=== PATIENT | female | born 1980 | race Caucasian/White ===

== ENCOUNTER 2018-07-07 16:58 | Inpatient (IN) | payer MEDICAID, SELFPAY ==
[2018-07-07 17:16] VITALS: BMI 33.3
--- NOTE | 2018-07-07 17:50 | PCM.HP.STD ---
Problem List (1) Acute opioid withdrawal Status: Acute (2) Drug abuse Status: Chronic History of Present Illness Date of Admission: 07/07/18 Chief Complaint: Acute opioid withdrawal The patient is a 38 year old F with past medical history as mentioned above presented to the [facility] office requesting admission for acute opioid withdrawal for medical stabilization. Patient has been using IV heroin daily over the last 4 weeks and her last use was this morning. She mentioned that she has been using around half grams every day. Before the last 4 weeks, she was clean for 9 months and she underwent detox program at [facility] 2 years ago. In total, she has been using IV heroin intermittently for the last 10 to 11 years. Her presenting symptoms are anxiety and restlessness, associated with cold sweats and without aggravating or relieving factors. She complained of abdominal pain described as abdominal cramps, mild, not radiating, associated with nausea without vomiting and without aggravating or relieving factors. She denied constipation or diarrhea. Her vital signs are stable. Past Medical History Past Medical History (Chronic Problems): Chronic Problems Drug abuse (Chronic) Allergies No Known Allergies Allergy (Verified 07/07/18 17:28) Surgical History: no surgical history Psychiatric History: No pertinent psych hx [address] [employer] History: No pertinent [address] [employer] history Lives: Spouse/ Significant Other Smoking Status: Current every day smoker Tobacco Use: Cigarettes Alcohol: None Drugs: Heroin - *Family History Maternal History Items: No pertinent history Paternal History Items: No pertinent history Review of Systems Constitutional: Denies: Anorexia, Chills, Fever, Weakness Eyes: Denies: Blurred vision, Double vision, Drainage, Redness HEENT: Denies: Difficulty Hearing, Ear Pain, Eye Pain, Nasal Congestion, Sore Throat Cardiovascular: Denies: Chest Pain, Chest Pressure, Heaviness, Light Headedness, Palpitations, Syncope Respiratory: Denies: Cough, Pleuritic Pain, Shortness of Breath, Sputum production, Wheezing Gastrointestinal: Reports: Nausea, - - Abdominal cramps.. Denies: Abdominal Pain, Constipation, Diarrhea, Vomiting Genitourinary: Denies: Dysuria, Frequency, Hematuria Musculoskeletal: Denies: Arm Pain, Back Pain, Foot Pain Skin: Denies: Dryness, Rash Neurological: Reports: Tremor. Denies: Balance problems, Double vision, Change in Speech, Slurred speech, Confusion Psychiatric: Reports: Anxiety. Denies: Depression Endocrine: Denies: Change in Body Habitus, Polydipsia VTE Information - Inpt Only VTE Present on Admission: No VTE Mechan Device Prophylaxis: None VTE Pharm Prophylaxis ordered?: No Patient Problems: Active and Suspected Problems Acute opioid withdrawal (Acute) - Physical Exam General: Alert, Oriented x3, Cooperative, No apparent distress HEENT: Atraumatic, PERRLA, EOMI, Normocephalic Oral: Moist Mucosa, No Gingival or Mucosal Lesions/ Ulcerations Neck: Supple, No JVD, Negative Carotid Bruits, Trachea Midline, Thyroid Normal Size and Texture Lungs: Clear to auscultation, Normal air movement, No rhonchi, No wheeze, No rales Cardiovascular: Regular rate, Regular Rhythm, Normal S1, Normal S2, No murmurs, PMI Normal Abdomen: Bowel Sounds Present, Soft, Non Tender, Non-Distended, No Hepato-splenomegaly, Obese Extremities: No clubbing, No cyanosis, No edema Skin: No rashes, No breakdown Lymphatic: No Cervical, Supraclavicular, or Inguinal Adenopathy Neurological: Cranial nerves II-XII grossly intact, Motor Exam 5/5 strength throughout Psych/Mental Status: Normal Affect, Appropriate, Alert and oriented to time, place, person, mood and affect Weight: 194 lb 4 oz Body Mass Index (BMI) 33.3 Assessment/Plan All Active Problems Acute opioid withdrawal (Acute) This is a 38 years old female patient presented to the [facility] office requesting admission for acute opioid withdrawal for medical stabilization. #1 acute opiate withdrawal: Patient has been using IV heroin daily for the last 4 weeks, was clean for 9 months but in total, she has been using IV heroin intermittently for the last 10 to 11 years. Last use was this morning. [facility], stat CBC and CMP, urine drug screen, blood alcohol level, serum test, initiate [facility] protocol with stable course of Subutex, PRN Catapres, Bentyl, Vistaril, Motrin, methocarbamol, Zofran and Mirapex, trazodone nightly. #2 history of drug abuse: She has been using IV heroin dramatically for the last 10 to 11 years, was continuous for the last 4 months. She went to the detox program 2 years ago at [facility] but she relapsed. Plan as above. #3 tobacco abuse: NicoDerm patch. #4 DVT prophylaxis: Low-risk patient, no prophylaxis indicated. This note was generated with [facility] software. It may contain incorrect words, spelling, and punctuation that were not noted in checking the note before signing. Code Visit Inpatient E&M: 38487 Init Hosp L2
--- NOTE | 2018-07-07 17:55 | HP.PCM_ITS ---
Problem List (1) Acute opioid withdrawal Status: Acute (2) Drug abuse Status: Chronic History of Present Illness Date of Admission: 07/07/18 Chief Complaint: Acute opioid withdrawal The patient is a 38 year old F with past medical history as mentioned above presented to the [facility] office requesting admission for acute opioid withdrawal for medical stabilization. Patient has been using IV heroin daily over the last 4 weeks and her last use was this morning. She mentioned that she has been using around half grams every day. Before the last 4 weeks, she was clean for 9 months and she underwent detox program at [facility] 2 years ago. In total, she has been using IV heroin intermittently for the last 10 to 11 years. Her presenting symptoms are anxiety and restlessness, associated with cold sweats and without aggravating or relieving factors. She complained of abdominal pain described as abdominal cramps, mild, not radiating, associated with nausea without vomiting and without aggravating or relieving factors. She denied constipation or diarrhea. Her vital signs are stable. Past Medical History Past Medical History (Chronic Problems): Chronic Problems Drug abuse (Chronic) Allergies No Known Allergies Allergy (Verified 07/07/18 17:28) Surgical History: no surgical history Psychiatric History: No pertinent psych hx RINK RAT History: No pertinent RINK RAT history Lives: Spouse/ Significant Other Smoking Status: Current every day smoker Tobacco Use: Cigarettes Alcohol: None Drugs: Heroin - *Family History Maternal History Items: No pertinent history Paternal History Items: No pertinent history Review of Systems Constitutional: Denies: Anorexia, Chills, Fever, Weakness Eyes: Denies: Blurred vision, Double vision, Drainage, Redness HEENT: Denies: Difficulty Hearing, Ear Pain, Eye Pain, Nasal Congestion, Sore Throat Cardiovascular: Denies: Chest Pain, Chest Pressure, Heaviness, Light Headedness, Palpitations, Syncope Respiratory: Denies: Cough, Pleuritic Pain, Shortness of Breath, Sputum production, Wheezing Gastrointestinal: Reports: Nausea, - - Abdominal cramps.. Denies: Abdominal Pain, Constipation, Diarrhea, Vomiting Genitourinary: Denies: Dysuria, Frequency, Hematuria Musculoskeletal: Denies: Arm Pain, Back Pain, Foot Pain Skin: Denies: Dryness, Rash Neurological: Reports: Tremor. Denies: Balance problems, Double vision, Change in Speech, Slurred speech, Confusion Psychiatric: Reports: Anxiety. Denies: Depression Endocrine: Denies: Change in Body Habitus, Polydipsia VTE Information - Inpt Only VTE Present on Admission: No VTE Mechan Device Prophylaxis: None VTE Pharm Prophylaxis ordered?: No Patient Problems: Active and Suspected Problems Acute opioid withdrawal (Acute) - Physical Exam General: Alert, Oriented x3, Cooperative, No apparent distress HEENT: Atraumatic, PERRLA, EOMI, Normocephalic Oral: Moist Mucosa, No Gingival or Mucosal Lesions/ Ulcerations Neck: Supple, No JVD, Negative Carotid Bruits, Trachea Midline, Thyroid Normal Size and Texture Lungs: Clear to auscultation, Normal air movement, No rhonchi, No wheeze, No rales Cardiovascular: Regular rate, Regular Rhythm, Normal S1, Normal S2, No murmurs, PMI Normal Abdomen: Bowel Sounds Present, Soft, Non Tender, Non-Distended, No Hepato- splenomegaly, Obese Extremities: No clubbing, No cyanosis, No edema Skin: No rashes, No breakdown Lymphatic: No Cervical, Supraclavicular, or Inguinal Adenopathy Neurological: Cranial nerves II-XII grossly intact, Motor Exam 5/5 strength throughout Psych/Mental Status: Normal Affect, Appropriate, Alert and oriented to time, place, person, mood and affect Weight: 194 lb 4 oz Body Mass Index (BMI) 33.3 Assessment/Plan All Active Problems Acute opioid withdrawal (Acute) This is a 38 years old female patient presented to the [facility] office requesting admission for acute opioid withdrawal for medical stabilization. #1 acute opiate withdrawal: Patient has been using IV heroin daily for the last 4 weeks, was clean for 9 months but in total, she has been using IV heroin intermittently for the last 10 to 11 years. Last use was this morning. [facility], stat CBC and CMP, urine drug screen, blood alcohol level, serum test, initiate [facility] protocol with stable course of Subutex, PRN Catapres, Bentyl, Vistaril, Motrin, methocarbamol, Zofran and Mirapex, trazodone nightly. #2 history of drug abuse: She has been using IV heroin dramatically for the last 10 to 11 years, was continuous for the last 4 months. She went to the detox program [address] [facility] but she relapsed. Plan as above. #3 tobacco abuse: NicoDerm patch. #4 DVT prophylaxis: Low-risk patient, no prophylaxis indicated. This note was generated with [employer] software. It may contain incorrect words, spelling, and punctuation that were not noted in checking the note before signing. Code Visit Inpatient E&M: 47913 Init Hosp L2
[2018-07-07 18:00] VITALS: BP 116/79; PULSE 81; RESP 12; TEMP 36.8
[2018-07-07] MEDS: Buprenorphine HCl 2 MG TAB.SUBL SL (18:16)
[2018-07-07] MEDS: Methocarbamol 750 MG Tablet PO (18:16)
[2018-07-07] MEDS: cloNIDine HCl 0.1 MG Tablet PO (18:16)
[2018-07-07] MEDS: Pramipexole Di-HCl 0.25 MG Tablet PO (18:16)
[2018-07-07 18:33] LABS: Absolute Lymphocyte Count 1.93 X10^3/ul (0.83-4.51); Absolute Neutrophil Count 4.5 X10^3/uL (2.0-7.7); Basophil# 0.04 X10^3/uL; Basophil% 0.5 % (0-1); Eosinophils% 2.7 % (0-5); Hematocrit 38.9 % (37-47); Hemoglobin 12.3 g/dl (12.0-15.0); Lymphocyte # 1.93 X10^3/ul (4.0); Lymphocyte % 26.5 % (19-41); Mean Corp Hgb Conc 31.6 g/gl (32-36); Mean Corpuscular Hgb 26.7 pg (27.0-32.0); Mean Corpuscular Volume 84.4 fL (81-99); Mean Platelet Vol. 10.6 fl (6.2-12.0); Monocyte# 0.58 X10^3/uL; Neutrophil # 4.52 X10^3/uL (2.7-7.7); Platelet Count 357 K/mm3 (150-450); RBC Distribution Width CV 13.6 % (11.6-14.6); RBC Distribution Width SD 41.2 fl (35.1-43.9); Red Blood Count 4.61 M/mm3 (4.2-5.4); White Blood Count 7.3 K/mm3 (4.4-11.0)
[2018-07-07 18:35] LABS: POSITIVE COUNT NO; POSITIVE DIFFERENTIAL NO; POSITIVE MORPHOLOGY NO
[2018-07-07 18:42] LABS: ALB/GLOB Ratio 0.9 RATIO (0.9-2.4); AST(SGOT) 21 U/L (15-37); Alanine Aminotransfer ALT/SGPT 23 U/L (13-56); Albumin, Serum 3.1 g/dL (3.2-5.0); Alkaline Phosphatase 64 U/L (45-117); Anion Gap 4 (5-15); BUN 12 mg/dL (7-18); BUN/Creat Ratio 21.7 RATIO (10-20); Calcium,Total 8.5 mg/dL (8.5-10.1); Chloride 107 mmol/L (98-107); Creatinine, Serum 0.55 mg/dL (0.55-1.02); EST Glomerular Filtration Rate 132 mL/min (>60); Est Glom Filt Rate - Afr Amer 159 mL/min (>60); Estimated Creatinine Clearance 122.11 ml/min; Globulin 3.6 g/dL (2.2-4.2); Glucose 104 mg/dL (74-106); Potassium 3.7 mmol/L (3.5-5.1); Protein, Total 6.7 g/dL (6.4-8.2); Sodium Level 137 mmol/L (136-145)
[2018-07-07 19:31] LABS: Internal QC Validated? YES +Cl - CLEAR BKGD; Pregnancy, Serum, hCG Quali. NEGATIVE Negative
[2018-07-07 20:08] VITALS: BP 109/70; PULSE 74; RESP 17; TEMP 36.9
[2018-07-07 20:09] VITALS: BP 109/70; PULSE 74; RESP 17; TEMP 36.9; O2SAT 95
[2018-07-07 20:31] LABS: Amphetamine Urine VISTA NEGATIVE (<1000 ng/mL); Barbiturate Urine VISTA NEGATIVE (< 200 ng/mL); Benzodiazepine Urine VISTA POSITIVE (< 200 ng/mL); Cocaine Urine VISTA POSITIVE (< 300 ng/mL); Ecstacy Urine VISTA NEGATIVE (< 500 ng/mL); Methadone Urine VISTA NEGATIVE (< 300 ng/mL); PCP Urine VISTA NEGATIVE (< 25 ng/mL); THC Urine VISTA POSITIVE (< 50 ng/mL); Vista UDS pH Range 6
[2018-07-07] MEDS: traZODone 50 MG Tablet PO (21:13)
[2018-07-07 23:31] VITALS: BP 113/76; PULSE 72; RESP 17; TEMP 36.7; O2SAT 95
[2018-07-08] MEDS: Buprenorphine HCl 2 MG TAB.SUBL SL ×3 (01:52→17:50)
[2018-07-08] MEDS: cloNIDine HCl 0.1 MG Tablet PO ×2 (01:53→05:47)
[2018-07-08 02:07] VITALS: BP 116/71; PULSE 71; RESP 17; TEMP 36.7; O2SAT 96
[2018-07-08] MEDS: hydrOXYzine PAM 25 MG Capsule 50 MG PO ×2 (05:47→22:28)
[2018-07-08 05:50] VITALS: BP 112/72; PULSE 70; RESP 18; TEMP 37.1
--- NOTE | 2018-07-08 08:40 | PCM.PN.HOSP ---
Patient Problems: Active and Suspected Problems Acute opioid withdrawal (Acute) Subjective: Patient is drowsy but wakes up during conversation. Feels anxious and restlessness but denies abdominal cramps or pain or diarrhea. Has tremors. Vitals/I&O's: Vital Signs Temp Pulse Resp BP Pulse Ox 98.7 F 70 18 112/72 96 07/08/18 05:50 07/08/18 05:50 07/08/18 05:50 07/08/18 05:50 07/08/18 02:07 Oxygen Delivery Method Room Air Weight: 194 lb 4 oz Body Mass Index (BMI) 33.3 Intake and Output for Last 24 Hours 07/06/18 07/07/18 07/08/18 23:59 23:59 23:59 Intake Total 440 / 440 340 / 340 Balance 440 / 440 340 / 340 General: Alert, Oriented x3, Cooperative HEENT: Atraumatic, PERRLA, EOMI, Normocephalic Neck: Supple, No JVD, Negative Carotid Bruits Lungs: Clear to auscultation, Normal air movement, No rhonchi, No wheeze, No rales Cardiovascular: Regular rate, Regular Rhythm, Normal S1, Normal S2, No murmurs Abdomen: Bowel Sounds Present, Soft, Non Tender, Non-Distended Extremities: No edema, Capillary Refill Less than 3 Seconds Skin: No rashes, No breakdown Musculoskeletal: No Tenderness to Palpation of Joints or Extremities Neurological: Cranial nerves II-XII grossly intact Psych/Mental Status: Normal Affect, Appropriate Laboratory Results 07/07/18 18:15: WBC 7.3, RBC 4.61, Hgb 12.3, Hct 38.9, MCV 84.4, MCH 26.7 L, MCHC 31.6 L, RDW 13.6, RDW Differential 41.2, Plt Count 357, MPV 10.6, Immature Gran % (Auto) 0.300, Neut % (Auto) 62.0, Lymph % (Auto) 26.5, [place] % (Auto) 8.0, Eos % (Auto) 2.7, Baso % (Auto) 0.5, Absolute Neuts (auto) 4.5, Absolute Lymphs (auto) 1.93, Total Counted Not Reportable 07/07/18 18:15: Sodium 137, Potassium 3.7, Chloride 107, Carbon Dioxide 26.0, Anion Gap 4 L, BUN 12, Creatinine 0.55, Estim Creat Clear Calc 122.11, Est GFR (MDRD) Af Amer 159, Est GFR (MDRD) Non-Af 132, BUN/Creatinine Ratio 21.7 H, Glucose 104, Calcium 8.5, Total Bilirubin 0.20, AST 21, ALT 23, Alkaline Phosphatase 64, Total Protein 6.7, Albumin 3.1 L, Globulin 3.6, Albumin/Globulin Ratio 0.9 07/07/18 18:15: Ethyl Alcohol 7.0 07/07/18 18:15: Serum , Qual NEGATIVE 07/07/18 19:43: Urine Opiates Screen POSITIVE H, Urine Methadone Screen NEGATIVE, Ur Barbiturates Screen NEGATIVE, Ur Phencyclidine Scrn NEGATIVE, Ur Amphetamines Screen NEGATIVE, U Methamphetamin-MDMA NEGATIVE, U Benzodiazepines Scrn POSITIVE H, Urine Cocaine Screen POSITIVE H, U Cannabinoids Screen POSITIVE H, Ur Drug Screen Comment Current Medications Acetaminophen (Tylenol) 500 mg PO Q4H PRN PRN PRN Reason: Temp > 100.4 F Buprenorphine HCl (Buprenorphine Hcl) 4 mg SL Q8H DAQUAN; Taper Stop: 07/10/18 21:44 Last Admin: 07/08/18 01:52 Dose: 4 mg Clonidine (Catapres) 0.1 mg PO Q2H PRN PRN PRN Reason: Hot/Cold Sweats or Anxiety Last Admin: 07/08/18 05:47 Dose: 0.1 mg Dicyclomine HCl (Bentyl) 20 mg PO Q6H PRN PRN PRN Reason: Abdomnial Discomfort Hydroxyzine Pamoate (Vistaril Pamoate Capsule) 50 mg PO Q6H PRN PRN PRN Reason: Mild Anxiety Last Admin: 07/08/18 05:47 Dose: 50 mg Ibuprofen (Motrin) 600 mg PO Q8H PRN PRN PRN Reason: Mild-Moderate Pain (1-5/10) Methocarbamol (Methocarbamol) 750 mg PO Q6H PRN PRN PRN Reason: Muscle Aches Last Admin: 07/07/18 18:16 Dose: 750 mg Nicotine (Nicoderm Cq (Pbkc)) 14 mg TRANSDERM. DAILY DAQUAN Last Admin: 07/07/18 19:48 Dose: 14 mg Nutritional Formula (Lactose Free) (Ensure Enlive) 120 ml PO 4X/DAY [facility] Last Admin: 07/07/18 21:14 Dose: Not Given Ondansetron HCl (Zofran Odt) 4 mg PO Q6H PRN PRN PRN Reason: NAUSEA Pramipexole Dihydrochloride (Mirapex) 0.25 mg PO Q12H PRN PRN PRN Reason: Restless Legs Last Admin: 07/07/18 18:16 Dose: 0.25 mg Trazodone HCl (Desyrel) 50 mg PO QHS [facility] Last Admin: 07/07/18 21:13 Dose: 50 mg Medical Necessity - Tobacco Use Smoking Status: Current every day smoker Tobacco Use: Cigarettes Assessment/Plan All Active Problems Acute opioid withdrawal (Acute) This is a 38 years old female patient with history of chronic opioid use for 11 years, IV heroin daily for last 4 weeks, last use on day of admission was admitted to [facility] program for medical stabilization of acute opioid withdrawal. She uses heroin half grams daily. History of relapse, was sober for 9 months after she underwent detox program in [facility] 2 years ago. She started using for last 1 month. #1 acute opiate withdrawal: Patient is admitted on MedSurg floor. Vital signs are stable, heart rate in 70s, no tachypnea or hypoxia. Labs reviewed. Alcohol level 7.0. Denies alcohol intake. U tox is positive of opioids, benzodiazepine, cocaine and cannabinoids. Serum test negative. [facility] protocol with stable course of Subutex, PRN Catapres, Bentyl, Vistaril, Motrin, methocarbamol, Zofran and Mirapex, trazodone nightly. #2 history of substance use including benzodiazepine, cocaine, and cannabinoids including IV heroin: She has been using IV heroin dramatically for the last 10 to 11 years, was continuous for the last 4 months. She went to the detox program 2 years ago at [facility] but she relapsed. Plan as above. #3 tobacco abuse: NicoDerm patch. #4 DVT prophylaxis: Low-risk patient, no prophylaxis indicated. Laboratory Results 07/07/18 18:15: WBC 7.3, RBC 4.61, Hgb 12.3, Hct 38.9, MCV 84.4, MCH 26.7 L, MCHC 31.6 L, RDW 13.6, RDW Differential 41.2, Plt Count 357, MPV 10.6, Immature Gran % (Auto) 0.300, Neut % (Auto) 62.0, Lymph % (Auto) 26.5, [place] % (Auto) 8.0, Eos % (Auto) 2.7, Baso % (Auto) 0.5, Absolute Neuts (auto) 4.5, Absolute Lymphs (auto) 1.93, Total Counted Not Reportable 07/07/18 18:15: Sodium 137, Potassium 3.7, Chloride 107, Carbon Dioxide 26.0, Anion Gap 4 L, BUN 12, Creatinine 0.55, Estim Creat Clear Calc 122.11, Est GFR (MDRD) Af Amer 159, Est GFR (MDRD) Non-Af 132, BUN/Creatinine Ratio 21.7 H, Glucose 104, Calcium 8.5, Total Bilirubin 0.20, AST 21, ALT 23, Alkaline Phosphatase 64, Total Protein 6.7, Albumin 3.1 L, Globulin 3.6, Albumin/Globulin Ratio 0.9 07/07/18 18:15: Ethyl Alcohol 7.0 07/07/18 18:15: Serum , Qual NEGATIVE 07/07/18 19:43: Urine Opiates Screen POSITIVE H, Urine Methadone Screen NEGATIVE, Ur Barbiturates Screen NEGATIVE, Ur Phencyclidine Scrn NEGATIVE, Ur Amphetamines Screen NEGATIVE, U Methamphetamin-MDMA NEGATIVE, U Benzodiazepines Scrn POSITIVE H, Urine Cocaine Screen POSITIVE H, U Cannabinoids Screen POSITIVE H, Ur Drug Screen Comment Code Visit Inpatient E&M: 64642 Subs Hosp L2
[2018-07-08 09:51] VITALS: BP 117/77; PULSE 68; RESP 18; TEMP 36.9; O2SAT 95
[2018-07-08 14:00] VITALS: BP 121/81; PULSE 69; RESP 16; TEMP 36.7
[2018-07-08] MEDS: Methocarbamol 750 MG Tablet PO (17:53)
[2018-07-08] MEDS: Dicyclomine 10 MG Capsule 20 MG PO (17:53)
[2018-07-08 17:56] VITALS: BP 119/80; PULSE 72; RESP 16; TEMP 36.7
[2018-07-08 22:20] VITALS: BP 117/68; PULSE 71; RESP 18; TEMP 36.8
[2018-07-08] MEDS: traZODone 50 MG Tablet PO (22:29)
[2018-07-08] MEDS: Pramipexole Di-HCl 0.25 MG Tablet PO (22:40)
[2018-07-09 01:55] VITALS: BP 111/78; PULSE 62; RESP 14; TEMP 36.6
[2018-07-09] MEDS: Buprenorphine HCl 2 MG TAB.SUBL SL ×3 (01:55→23:07)
[2018-07-09 10:30] VITALS: BP 108/73; PULSE 79; RESP 18; TEMP 36.8
[2018-07-09] MEDS: cloNIDine HCl 0.1 MG Tablet PO (10:36)
[2018-07-09] MEDS: Dicyclomine 10 MG Capsule 20 MG PO (10:36)
[2018-07-09] MEDS: hydrOXYzine PAM 25 MG Capsule 50 MG PO (10:37)
--- NOTE | 2018-07-09 11:00 | PN_ITS ---
Patient Problems: Active and Suspected Problems Acute opioid withdrawal (Acute) Subjective: Patient feels better than yesterday. Denies nausea vomiting, abdominal cramps. Still has mild tremors. Vitals/I&O's: Vital Signs Temp Pulse Resp BP Pulse Ox 98.3 F 79 18 108/73 95 07/09/18 10:30 07/09/18 10:30 07/09/18 10:30 07/09/18 10:30 07/08/18 09:51 Oxygen Delivery Method Room Air Weight: 194 lb 3.989 oz Body Mass Index (BMI) 33.3 Intake and Output for Last 24 Hours 07/07/18 07/08/18 07/09/18 23:59 23:59 23:59 Intake Total 440 / 440 340 / 340 Balance 440 / 440 340 / 340 General: Alert, Oriented x3, Cooperative HEENT: Atraumatic, PERRLA, EOMI, Normocephalic Neck: Supple, No JVD, Negative Carotid Bruits Lungs: Clear to auscultation, Normal air movement, No rhonchi, No wheeze, No rales Cardiovascular: Regular rate, Regular Rhythm, Normal S1, Normal S2, No murmurs Abdomen: Bowel Sounds Present, Soft, Non Tender, Non-Distended Extremities: No edema, Capillary Refill Less than 3 Seconds Skin: No rashes, No breakdown Musculoskeletal: No Tenderness to Palpation of Joints or Extremities, Arthritic Changes Neurological: Cranial nerves II-XII grossly intact Psych/Mental Status: Normal Affect, Appropriate Current Medications Acetaminophen (Tylenol) 500 mg PO Q4H PRN PRN PRN Reason: Temp > 100.4 F Buprenorphine HCl (Buprenorphine Hcl) 2 mg SL Q12H DAQUAN; Taper Stop: 07/10/18 21:44 Last Admin: 07/09/18 10:37 Dose: 2 mg Clonidine (Catapres) 0.1 mg PO Q2H PRN PRN PRN Reason: Hot/Cold Sweats or Anxiety Last Admin: 07/09/18 10:36 Dose: 0.1 mg Dicyclomine HCl (Bentyl) 20 mg PO Q6H PRN PRN PRN Reason: Abdomnial Discomfort Last Admin: 07/09/18 10:36 Dose: 20 mg Hydroxyzine Pamoate (Vistaril Pamoate Capsule) 50 mg PO Q6H PRN PRN PRN Reason: Mild Anxiety Last Admin: 07/09/18 10:37 Dose: 50 mg Ibuprofen (Motrin) 600 mg PO Q8H PRN PRN PRN Reason: Mild-Moderate Pain (1-5/10) Methocarbamol (Methocarbamol) 750 mg PO Q6H PRN PRN PRN Reason: Muscle Aches Last Admin: 07/08/18 17:53 Dose: 750 mg Nicotine (Nicoderm Cq (Pbkc)) 14 mg TRANSDERM. DAILY ON LICENSE OF [facility] Last Admin: 07/09/18 10:33 Dose: Not Given Ondansetron HCl (Zofran Odt) 4 mg PO Q6H PRN PRN PRN Reason: NAUSEA Pramipexole Dihydrochloride (Mirapex) 0.25 mg PO Q12H PRN PRN PRN Reason: Restless Legs Last Admin: 07/08/18 22:40 Dose: 0.25 mg Trazodone HCl (Desyrel) 50 mg PO QHS ON LICENSE OF [facility] Last Admin: 07/08/18 22:29 Dose: 50 mg Medical Necessity - Tobacco Use Smoking Status: Current every day smoker Tobacco Use: Cigarettes Assessment/Plan All Active Problems Acute opioid withdrawal (Acute) This is a 38 years old female patient with history of chronic opioid use for 11 years, IV heroin daily for last 4 weeks, last use on day of admission was admitted to [facility] program for medical stabilization of acute opioid withdrawal. She uses heroin half grams daily. History of relapse, was sober for 9 months after she underwent detox program in [facility] 2 years ago. She started using for last 1 month. #1 acute opiate withdrawal: Patient is admitted on MedSurg floor. Vital signs are stable, heart rate in 70s, no tachypnea or hypoxia. Labs reviewed. Alcohol level 7.0. Denies alcohol intake. U tox is positive of opioids, benzodiazepine, cocaine and cannabinoids. Serum test negative. MAGDIEL 8 scale is 5. Feels better. [facility] protocol with stable course of Subutex, PRN Catapres, Bentyl, Vistaril, Motrin, methocarbamol, Zofran and Mirapex, trazodone nightly. #2 history of substance use including benzodiazepine, cocaine, and cannabinoids including IV heroin: She has been using IV heroin dramatically for the last 10 to 11 years, was continuous for the last 4 months. She went to the detox program 2 years ago at [facility] but she relapsed. Plan as above. #3 tobacco abuse: NicoDerm patch. #4 DVT prophylaxis: Low-risk patient, no prophylaxis indicated. Patient will be on fourth hospital day tomorrow and discharge Laboratory Results 07/07/18 18:15: WBC 7.3, RBC 4.61, Hgb 12.3, Hct 38.9, MCV 84.4, MCH 26.7 L, MCHC 31.6 L, RDW 13.6, RDW Differential 41.2, Plt Count 357, MPV 10.6, Immature Gran % (Auto) 0.300, Neut % (Auto) 62.0, Lymph % (Auto) 26.5, [place] % (Auto) 8.0, Eos % (Auto) 2.7, Baso % (Auto) 0.5, Absolute Neuts (auto) 4.5, Absolute Lymphs (auto) 1.93, Total Counted Not Reportable 07/07/18 18:15: Sodium 137, Potassium 3.7, Chloride 107, Carbon Dioxide 26.0, Anion Gap 4 L, BUN 12, Creatinine 0.55, Estim Creat Clear Calc 122.11, Est GFR (MDRD) Af Amer 159, Est GFR (MDRD) Non-Af 132, BUN/Creatinine Ratio 21.7 H, Glucose 104, Calcium 8.5, Total Bilirubin 0.20, AST 21, ALT 23, Alkaline Phosphatase 64, Total Protein 6.7, Albumin 3.1 L, Globulin 3.6, Albumin/Globulin Ratio 0.9 07/07/18 18:15: Ethyl Alcohol 7.0 07/07/18 18:15: Serum , Qual NEGATIVE 07/07/18 19:43: Urine Opiates Screen POSITIVE H, Urine Methadone Screen NEGATIVE, Ur Barbiturates Screen NEGATIVE, Ur Phencyclidine Scrn NEGATIVE, Ur Amphetamines Screen NEGATIVE, U Methamphetamin-MDMA NEGATIVE, U Benzodiazepines Scrn POSITIVE H, Urine Cocaine Screen POSITIVE H, U Cannabinoids Screen POSITIVE H, Ur Drug Screen Comment Code Visit Inpatient E&M: 15586 Subs Hosp L2
--- NOTE | 2018-07-09 13:12 | [facility] ---
Patient needs morning D/C due to MAT appointment at 11:30am on 07/10/2018 at [facility] in [place].
[2018-07-09 16:33] VITALS: BP 113/57; PULSE 66; RESP 16; TEMP 36.6; O2SAT 97
[2018-07-09 22:00] VITALS: BP 123/74; PULSE 65; RESP 16; TEMP 36.9
[2018-07-09] MEDS: traZODone 50 MG Tablet PO (23:07)
[2018-07-10 02:00] VITALS: RESP 16
[2018-07-10 06:00] VITALS: BP 128/78; PULSE 68; RESP 16; TEMP 36.8
--- NOTE | 2018-07-10 07:56 | DCINST_ITS ---
- Discharge Diagnoses Current Active Problems: Current Active and Chronic Problems Acute opioid withdrawal (Acute) Drug abuse (Chronic) You will use the following diet at home:: Regular Your food should be the consistency of: Regular Discharge Activity: May Not Drive Weight Bearing Status: Weight bearing as tolerated Call your doctor if you observe: Fever of 101 or Higher, Numbness or Tingling, Inability to urinate, Inability to have a bowel movement, Shortness of breath, Dizziness, Fainting spells, Chest pain, Increased palpitations (irregular heartbeat), Uncontrolled pain Additional Instructions: F/U [facility] Allergies/Adverse Reactions: Allergies No Known Allergies Allergy (Verified 07/07/18 17:28) Medications to take at Discharge Nicotine [Nicoderm] 14 mg TRANSDERM. DAILY #30 patch 07/10/18 The following prescriptions were given: Nicotine [Nicoderm] 14 mg TRANSDERM. DAILY #30 patch Please follow up with your Primary Care Physician in: PCP IN 1-2 week Test Results: Test results from this visit will be discussed in further detail at your follow- up appointment, if applicable.
--- NOTE | 2018-07-10 07:56 | DS.PCM_ITS ---
Discharge Date and Diagnosis Date of Admission: 07/07/18 Date of Discharge: 07/10/18 - Primary Discharge Diagnosis Active and Suspected Problems Acute opioid withdrawal (Acute) - Secondary Discharge Diagnosis Chronic Problems Drug abuse (Chronic) Hospital Course and Treatment Summary of Care Provided: [] This is a 38 years old female patient with history of chronic opioid use for 11 years, IV heroin daily for last 4 weeks, last use on day of admission was admitted to [facility] for medical stabilization of acute opioid withdrawal. She uses heroin half grams daily. History of relapse, was sober for 9 months after she underwent detox program in [facility] 2 years ago. She started using for last 1 month. #1 acute opiate withdrawal: Patient is admitted on MedSurg floor. Vital signs are stable, heart rate in 70s, no tachypnea or hypoxia. Labs reviewed. Alcohol level 7.0. Denies alcohol intake. U tox is positive of opioids, benzodiazepi ne, cocaine and cannabinoids. Serum test negative. CINA is score 2. Patient had mild symptoms of abdominal cramps which is controlled. Patient had follow-up with outpatient detox rehab as arranged by [facility]. [facility] protocol with stable course of Subutex, PRN Catapres, Bentyl, Vistaril, Motrin, methocarbamol, Zofran and Mirapex, trazodone nightly. #2 history of substance use including benzodiazepine, cocaine, and cannabinoids including IV heroin: She has been using IV heroin dramatically for the last 10 to 11 years, was continuous for the last 4 months. She went to the detox program 2 years ago at [facility] but she relapsed. Plan as above. #3 tobacco abuse: NicoDerm patch. #4 DVT prophylaxis: Low-risk patient, no prophylaxis indicated. Discharge medication reconciliation done. Discharge follow-up instructions completed. Discharge process discussed with the patient and all questions were answered to patient's satisfaction. Patient was advised to follow with PCP in 1 week. Subjective: Seen and examined in the morning. Patient has mild abdominal cramps Otherwise feels okay. No shortness of breath. Tremors are better controlled. CINA score 2 - Physical Exam General: Alert, Oriented x3, Cooperative HEENT: Atraumatic, PERRLA, EOMI, Normocephalic Oral: Moist Mucosa Neck: Supple, No JVD, Negative Carotid Bruits Lungs: Clear to auscultation, Normal air movement Cardiovascular: Regular rate, Regular Rhythm, Normal S1, Normal S2, No murmurs Abdomen: Bowel Sounds Present, Soft, Non Tender, Non-Distended Extremities: No edema, Capillary Refill Less than 3 Seconds Skin: No rashes, No breakdown Musculoskeletal: No Tenderness to Palpation of Joints or Extremities Lymphatic: No Cervical, Supraclavicular, or Inguinal Adenopathy Neurological: Cranial nerves II-XII grossly intact, Deep Tendon Reflexes 2+/4 and Symmetrical, Neuro grossly intact, Motor Exam 5/5 strength throughout Psych/Mental Status: Normal Affect, Appropriate Vital Signs Temp Pulse Resp BP Pulse Ox 98.3 F 68 16 128/78 H 97 07/10/18 06:00 07/10/18 06:00 07/10/18 06:00 07/10/18 06:00 07/09/18 16:33 Oxygen Delivery Method Room Air Weight: 194 lb 3.989 oz Body Mass Index (BMI) 33.3 Intake and Output for Last 24 Hours 07/08/18 07/09/18 07/10/18 23:59 23:59 23:59 Intake Total 340 / 340 1160 / 1160 300 / 300 Balance 340 / 340 1160 / 1160 300 / 300 Discharge Activity: May Not Drive Weight Bearing Status: Weight bearing as tolerated Call your doctor if you observe: Fever of 101 or Higher, Numbness or Tingling, Inability to urinate, Inability to have a bowel movement, Shortness of breath, Dizziness, Fainting spells, Chest pain, Increased palpitations (irregular heartbeat), Uncontrolled pain Home Medications: Medications to take at Discharge Nicotine [Nicoderm] 14 mg TRANSDERM. DAILY #30 patch 07/10/18 Following Prescrptions Were Given to Patient: Nicotine [Nicoderm] 14 mg TRANSDERM. DAILY #30 patch Please follow up with your Primary Care Physician in: PCP IN 1-2 week Medical Necessity - Tobacco Use Smoking Status: Current every day smoker Tobacco Use: Cigarettes Meaningful Use Info Meaningful Use Diagnoses (Choose all that apply): None applicable Code Visit Inpatient E&M: 83381 Disch Hosp
[2018-07-10 09:11] VITALS: BP 102/62; PULSE 60; RESP 16; TEMP 36.8; O2SAT 95
[2018-07-10 09:12] VITALS: BP 102/62; PULSE 60; RESP 16; TEMP 36.8
[2018-07-10 09:15] VITALS: PULSE 60
[2018-07-10] MEDS: Buprenorphine HCl 2 MG TAB.SUBL SL (09:15)
== END 2018-07-10 10:30 | disposition home or self-care (01) | DRG 773 ==
PROVIDERS: Admitting Provider Hospitalist; Visit Provider Internal Medicine
DX: F11.23 Opioid dependence with withdrawal (principal); Z72.0 Tobacco use
CPT/HCPCS: 80053; 80307; 80320; 84703; 85025; 97802; 99406; G0480